=== PATIENT | male | born 1955 | race Caucasian/White ===

== ENCOUNTER 2025-03-23 07:54 | Emergency (ER) | payer OTHER ==
[2025-03-23] MEDS ORDERED: Lidocaine 1% w/Epinephrine 1:100K 20 ML VIAL ONE (08:24)
[2025-03-23] MEDS ORDERED: Bacitracin 1 PK ONE (09:30)
== END 2025-03-23 09:53 ==
LOC: NAV ERS 07:54 → EEVIPCON 07:54 → NAV ERS 09:53
DX: S02.32XA Fracture of orbital floor, left side, initial encounter for closed fracture (principal); S01.81XA Laceration without foreign body of other part of head, initial encounter; W06.XXXA Fall from bed, initial encounter
CPT/HCPCS: 12013; 70486